=== PATIENT | male | born 1965 | race Caucasian/White ===

== ENCOUNTER 2018-02-10 12:51 | Outpatient (CLI) | payer MEDICARE | END 2018-02-10 12:52 | disposition home or self-care (01) | LOC: DTY/OP 12:51 | PROVIDERS: ATTEND Surgery | DX: E11.9 Type 2 diabetes mellitus without complications (principal); I10 Essential (primary) hypertension | CPT/HCPCS: 97802 ==

== ENCOUNTER 2018-08-18 00:11 | Outpatient (CLI) | payer MEDICARE ==
[2018-08-18 12:29] LABS: #Basophils 0.1 thou/uL (0.0-0.2); #Eosinphils 0.2 thou/uL (0.0-0.7); #Lymphocytes 4.2 thou/uL (1.20-3.40); #Monocytes 0.8 thou/uL (0.11-0.59); #Neutrophils 5.5 thou/uL (1.40-6.50); %Basophils 1.2 % (0.0-1.0); %Eosinophils 1.9 % (0.0-10.0); %Lymphocytes 38.7 % (21.0-51.0); %Monocytes 7.7 % (0.0-10.0); %Neutrophils 50.5 % (42.0-75.0); Mean Corpuscular HGB CONC 34.2 g/dL (32.0-36.0); Mean Corpuscular Hemoglobin 33.3 pg (27.0-31.0); Mean Corpuscular Volume 97.2 fL (78.0-98.0); Mean Platelet Volume 8.4 fL (7.4-10.4); Platelet Count 182 thou/uL (130-400); RBC Distribution Width 12.9 % (11.5-14.5); White Blood Cell (WBC) Count 10.9 thou/uL (4.8-10.8)
[2018-08-18 12:54] LABS: ALT (SGPT) 33 U/L (8-55); AST (SGOT) 34 U/L (5-34); Albumin 4.3 g/dL (3.5-5.0); Alkaline Phosphatase 91 U/L (40-150); Anion Gap 15 mmol/L (10-20); BUN (Urea Nitrogen) 30 mg/dL (8.4-25.7); Bilirubin, Direct 0.1 mg/dL (0.1-0.3); Bilirubin, Total 0.3 mg/dL (0.2-1.2); Calc. Creatinine Clearance 0 mL/min (70-130); Calcium 10.6 mg/dL (7.8-10.44); Carbon Dioxide 23 mmol/L (22-29); Chloride 101 mmol/L (98-107); Estimated GFR-MDRD 68; Globulin 3.5 g/dL (2.4-3.5); Glucose 80 mg/dL (70-105); Potassium 4.5 mmol/L (3.5-5.1); Protein, Total 7.8 g/dL (6.0-8.3); Sodium 134 mmol/L (136-145)
== END 2018-08-18 00:12 | disposition home or self-care (01) ==
LOC: LABBT 00:11
PROVIDERS: ATTEND Surgery
DX: Z01.818 Encounter for other preprocedural examination (principal); E11.9 Type 2 diabetes mellitus without complications; I10 Essential (primary) hypertension; Z68.41 Body mass index [BMI] 40.0-44.9, adult
CPT/HCPCS: 80053; 80076; 83036; 85025; 93005; 93010

== ENCOUNTER 2018-08-18 11:00 | Inpatient (IN) | payer MEDICARE ==
[2018-08-18 11:23] VITALS: BMI 39.9
[2018-08-27] MEDS ORDERED: Heparin 5,000 UNITS/ML VIAL ONE (10:25)
[2018-08-27] MEDS ORDERED: Bupivacaine/Epinephrine 0.25% 30 ML VIAL ONE (11:24)
[2018-08-27] MEDS ORDERED: Fentanyl 250 MCG/5 ML VIAL ONE (11:25)
[2018-08-27] MEDS ORDERED: Midazolam HCl 2 mg/2 ml Vial ONE (11:31)
[2018-08-27] MEDS ORDERED: SUGAMMADEX SODIUM 200 MG/2 ML VIAL ONE (12:58)
[2018-08-27] MEDS ORDERED: hydrALAZINE 20 MG/ML VIAL SLOW IVP PRN (13:12)
[2018-08-27] MEDS ORDERED: Dextrose 50% Abboject 50 ML SYRINGE SLOW IVP PRN (13:12)
[2018-08-27] MEDS ORDERED: Dextrose 5% in Water 1,000 ML IV PRN (13:12)
[2018-08-27] MEDS ORDERED: Hydrocodone-Acetamin 15 ML UDCUP PO PRN ×2 (13:12→13:46)
[2018-08-27] MEDS ORDERED: diphenhydrAMINE 50 MG/ML VIAL IVP PRN ×2 (13:12→13:40)
[2018-08-27] MEDS ORDERED: Ondansetron PF 4 MG/2 ML Vial IVP PRN ×2 (13:12→13:40)
[2018-08-27] MEDS ORDERED: HumaLOG 300 UNITS/3 ML VIAL SC PRN (13:12)
[2018-08-27] MEDS ORDERED: Promethazine HCl 25 MG/ML VIAL IM PRN ×3 (13:12→13:40)
[2018-08-27] MEDS ORDERED: Promethazine HCl 25 MG/ML VIAL SLOW IVP PRN (13:20)
[2018-08-27] MEDS ORDERED: Ondansetron HCl/PF 4 MG/2 ML Vial IVP PRN (13:20)
[2018-08-27] MEDS ORDERED: Fentanyl 100 MCG/2 ML VIAL ONE ×2 (13:23→14:06)
[2018-08-27] MEDS ORDERED: fentaNYL Citrate/PF 2,000 MCG in Sodium Chloride 0.9% 60 ML IV PRN (13:40)
[2018-08-27] MEDS ORDERED: diphenhydrAMINE 25 MG CAP PO PRN (13:40)
[2018-08-27] MEDS ORDERED: diphenhydrAMINE 50 MG/ML VIAL IM PRN (13:40)
[2018-08-27] MEDS ORDERED: Naloxone HCl 0.4 mg/ml Vial IV PRN (13:40)
[2018-08-27] MEDS ORDERED: Zolpidem Tartrate 5 MG TAB PO PRN (13:40)
[2018-08-27] MEDS ORDERED: Communication Order-Pharmacy FS SCH (13:45)
[2018-08-27] MEDS: Sodium Chloride 0.9% 1,000 ML IV SCH ×3 (15:35→23:32)
[2018-08-27] MEDS: Gabapentin 300 MG CAP PO SCH ×2 (15:35→19:40)
[2018-08-27] MEDS ORDERED: Ketorolac Tromethamine 30 MG/ML VIAL ONE (16:13)
[2018-08-27] MEDS ORDERED: Ondansetron PF 4 MG/2 ML Vial ONE (16:13)
[2018-08-27] MEDS ORDERED: PROVENTIL INHALER 6.7 G (200 INHALATIONS) ONE (16:13)
[2018-08-27] MEDS ORDERED: Rocuronium Bromide 10 MG/ML (10ML VIAL) ONE (16:13)
[2018-08-27] MEDS ORDERED: Dexamethasone 20 MG/5 ML VIAL ONE (16:13)
[2018-08-27] MEDS ORDERED: PHENYLEPHRINE-NS 100 MCG/ML 10 ML SYRINGE ONE (16:13)
[2018-08-27] MEDS ORDERED: PROPOFOL 200 MG/20 ML VIAL ONE (16:13)
[2018-08-27] MEDS ORDERED: Lidocaine 1% PF 5 ML VIAL ONE (16:13)
[2018-08-27] MEDS: Acetaminophen 1,000 MG in Premix Bag 1 BAG IVPB SCH ×2 (17:38→23:32)
[2018-08-27] MEDS: Pregabalin 75 MG CAP PO SCH (19:40)
[2018-08-27] MEDS: Potassium Chloride 10 MEQ TAB PO SCH (19:40)
[2018-08-27] MEDS ORDERED: DOLUTEGRAVIR PO SCH (21:00)
[2018-08-27] MEDS ORDERED: Montelukast Sodium 10 mg Tablet PO SCH (21:00)
[2018-08-27] MEDS ORDERED: ALPRAZolam 0.5 MG TAB PO SCH (21:00)
[2018-08-27] MEDS ORDERED: Enoxaparin Sodium 40 MG/0.4 ML SYRINGE SC SCH (21:00)
[2018-08-27] MEDS ORDERED: ABACAVIR PO SCH (21:00)
[2018-08-27] MEDS ORDERED: LAMIVUDI PO SCH (21:00)
--- NOTE | 2018-08-28 02:57 | OP ---
DATE OF PROCEDURE: 08/27/2018 PREOPERATIVE DIAGNOSES: 1. Morbid obesity with BMI of 41. 2. Diabetes mellitus, insulin dependent. 3. Hypertension. 4. Hyperlipidemia. POSTOPERATIVE DIAGNOSES: 1. Morbid obesity with BMI of 41. 2. Diabetes mellitus, insulin dependent. 3. Hypertension. 4. Hyperlipidemia. PROCEDURES: 1. Laparoscopic sleeve gastrectomy with [place] staple line reinforcements and 38-[place] bougie. 2. Esophagogastroduodenoscopy. ANESTHESIA: General. ESTIMATED BLOOD LOSS: 50 mL. COMPLICATIONS: None. SPECIMEN: Stomach. FINDINGS: Normal postoperative EGD. DESCRIPTION OF PROCEDURE: The patient was taken to the operating room and laid supine on the table. After general anesthetic was obtained, the arms and legs were double strapped to bariatric table. OG tube had been used to decompress the stomach. The abdomen was prepped and draped in a sterile fashion. Left subcostal 5 mm Optiview trocar was placed in usual fashion and high-flow pneumoperitoneum was obtained. Right subcostal 5-mm port was placed as well as 2 abdominal 12 mm ports. Some intraabdominal adhesions from prior hernia repair had to be taken down sharply, carefully without injury to allow for port placement. The patient was placed in reverse Trendelenburg position and 5 mm incision was made at the xiphoid and Rico was used to raise the liver off the GE junction. Short gastrics were taken down from mid body of stomach to the left marcello of diaphragm. The posterior fundus and angle of His were completely dissected. Short gastrics were taken down to a distance of 5 cm proximal to the pylorus. OG tube was removed and 38 bougie was brought in and its tip left in the antrum of the stomach. Multiple loads of the [place] stapling device was used to perform the sleeve. The first was fired up at a distance of 5 cm proximal to the pylorus, angled up towards the incisura. Multiple loads were then fired up along the bougie. Stomach was completely transected at the angle of His. Stomach was removed from the upper abdominal incision. This fascial defect was closed using GraNee needle and 0 Vicryl tie. All port sites were infiltrated using local anesthesia. EGD scope was passed through esophagus and stomach to the level of duodenum without obstruction. There was no air leakage or bleeding through the staple line. No evidence of stricture at the incisura or at the GE junction. EGD scope was used to decompress the stomach. It was pulled and removed. No bleeding in the abdomen along the staple line. All port sites were infiltrated using local anesthetic. The Rico removed under direct visualization without bleeding. Pneumoperitoneum was let down. The Vicryl was used to close the fascial defects. All incisions were irrigated and closed using 4-0 Monocryl and Dermabond. The patient was sent to Recovery in stable condition. All instrument counts, needle counts, and lap counts were correct. Job ID: [id number]
[2018-08-28 04:58] LABS: #Lymphocytes 2.4 thou/uL (1.20-3.40); #Monocytes 0.7 thou/uL (0.11-0.59); #Neutrophils 8.8 thou/uL (1.40-6.50); %Basophils 0.3 % (0.0-1.0); %Eosinophils 0.1 % (0.0-10.0); %Lymphocytes 20.3 % (21.0-51.0); %Monocytes 5.8 % (0.0-10.0); %Neutrophils 73.4 % (42.0-75.0); Hemoglobin 14.5 g/dL (14.0-18.0); Mean Corpuscular HGB CONC 33.9 g/dL (32.0-36.0); Mean Corpuscular Hemoglobin 33.5 pg (27.0-31.0); Mean Corpuscular Volume 98.8 fL (78.0-98.0); Mean Platelet Volume 8.3 fL (7.4-10.4); Platelet Count 150 thou/uL (130-400); RBC Distribution Width 12.8 % (11.5-14.5); Red Blood Cell (RBC) Count 4.32 mill/uL (4.70-6.10)
[2018-08-28 05:14] LABS: Anion Gap 11 mmol/L (10-20); BUN (Urea Nitrogen) 23 mg/dL (8.4-25.7); Calc. Creatinine Clearance 130 mL/min (70-130); Calcium 8.9 mg/dL (7.8-10.44); Carbon Dioxide 25 mmol/L (22-29); Chloride 106 mmol/L (98-107); Estimated GFR-MDRD 78; Glucose 95 mg/dL (70-105); Potassium 4.6 mmol/L (3.5-5.1); Sodium 137 mmol/L (136-145)
[2018-08-28] MEDS: Acetaminophen 1,000 MG in Premix Bag 1 BAG IVPB SCH ×2 (05:30→11:09)
[2018-08-28] MEDS: Pregabalin 75 MG CAP PO SCH (08:32)
[2018-08-28] MEDS: Gabapentin 300 MG CAP PO SCH (08:32)
[2018-08-28] MEDS: Potassium Chloride 10 MEQ TAB PO SCH (08:34)
[2018-08-28] MEDS ORDERED: DULoxetine 60 MG CAP PO SCH (09:00)
[2018-08-28] MEDS ORDERED: Lisinopril/Hydrochlorothiazide 10 mg/12.5 mg Tablet PO SCH (09:00)
[2018-08-28] MEDS ORDERED: Pantoprazole 40 MG VIAL IVP SCH (09:00)
[2018-08-28] MEDS ORDERED: Aripiprazole 10 MG TAB PO SCH (09:00)
[2018-08-28 11:41] VITALS: BP 113/70; TEMP 97.7
[2018-08-28] MEDS ORDERED: Hydrocodone-Acetamin 15 ML UDCUP PO PRN (16:00)
== END 2018-08-28 11:46 | disposition home or self-care (01) | DRG 621 ==
LOC: SURG A 08-27 09:29
PROVIDERS: ADMIT Surgery; ATTEND Surgery
PROC: 0DB64Z3 Excision of Stomach, Percutaneous Endoscopic Approach, Vertical (ICD-10-PCS; principal; 2018-08-27)
PROC: 0DJ08ZZ Inspection of Upper Intestinal Tract, Via Natural or Artificial Opening Endoscopic (ICD-10-PCS; 2018-08-27)
DX: E66.01 Morbid (severe) obesity due to excess calories (principal); I10 Essential (primary) hypertension; E11.9 Type 2 diabetes mellitus without complications; E78.5 Hyperlipidemia, unspecified; Z68.41 Body mass index [BMI] 40.0-44.9, adult
CPT/HCPCS: 36415; 36416; 71046; 80048; 85025; 88307; 88312; 94760; C9113; J0131; J1100; J1644; J1650; J1885; J2001; J2250; J2405; J2704; J3010; J7050; Q0163

== ENCOUNTER 2025-04-09 21:40 | Inpatient (IN) | payer MEDICARE ==
[2025-04-10 00:11] VITALS: BMI 34.3
[2025-04-10] MEDS ORDERED: Ondansetron PF 4 MG/2 ML Vial IVP PRN (00:16)
[2025-04-10] MEDS ORDERED: Glucagon 1 MG/ML KIT IM PRN (00:16)
[2025-04-10] MEDS ORDERED: Dextrose 50% Abboject 50 ML SYRINGE SLOW IVP PRN (00:16)
[2025-04-10 00:54] LABS: Actual Bicarbonate (HCO3v) 20.3 mEq/L (22-28); Base Excess -3.3 mEq/L (-2.0 to +3.0); Calcium, Ionized (venous) 1.14 mmol/L (1.16-1.32); Chloride (VBG) 114 mmol/L (98-106); Hematocrit-VBG 43 % (42.0-52.0); Hemoglobin (Hb) 14.6 g/dL (13.1-17.2); Potassium (VBG) 3.82 mmol/L (3.70-5.30); Sodium 146 mmol/L (133-146)
[2025-04-10 00:59] LABS: #Basophils 0.07 10x3/uL (0.0-0.2); #Eosinophils 0.36 10x3/uL (0.0-0.7); #Monocytes 0.80 10x3/uL (0.11-0.59); #Neutrophils 5.08 10x3/uL (1.40-6.50); %Basophils 0.9 % (0.0-1.0); %Eosinophils 4.6 % (0.0-10.0); %Lymphocytes 19.3 % (21.0-51.0); %Monocytes 10.2 % (0.0-10.0); %Neutrophils 64.9 % (42.0-75.0); Hematocrit 40.3 % (42.0-52.0); Hemoglobin 13.1 g/dL (14.0-18.0); Mean Corpuscular Hemoglobin 34.8 pg (27.0-31.0); Mean Corpuscular Volume 107.2 fL (78.0-98.0); Platelet Count 198 10x3/uL (130-400); Red Blood Cell (RBC) Count 3.76 mill/uL (4.70-6.10); White Blood Cell (WBC) Count 7.83 10x3/uL (4.8-10.8)
[2025-04-10 01:14] LABS: ALT (SGPT) 41 U/L (Less than 45); AST (SGOT) 53 U/L (11-34); Albumin 3.6 g/dL (3.1-4.5); Alkaline Phosphatase 60 U/L (40-110); Anion Gap 15 mmol/L (10-20); BUN (Urea Nitrogen) 25 mg/dL (8.4-25.7); Bilirubin, Total 0.7 mg/dL (0.3-1.2); Calc. Creatinine Clearance 51 mL/min (70-130); Calcium 9.4 mg/dL (7.8-10.44); Carbon Dioxide 17 mmol/L (23-31); Chloride 116 mmol/L (98-107); Globulin 3.6 g/dL (2.4-3.5); Glucose 84 mg/dL (80-115); Potassium 3.8 mmol/L (3.5-5.1); Sodium 144 mmol/L (136-145)
[2025-04-10] MEDS ORDERED: hydrALAZINE 20 MG/ML VIAL SLOW IVP PRN (02:31)
[2025-04-10] MEDS: Sodium Bicarb 50 MEQ/50 ML Abboject 8.4% SYRINGE IVP SCH (02:38)
[2025-04-10 05:15] LABS: Cardiac Risk 6.7 (Less than 4.5); Cholesterol 181.0 mg/dl (< 200 Desired); HDL Cholesterol 27.0 mg/dL (>60 Neg Risk); LDL Cholesterol, Calculated 112.0 mg/dL; Triglycerides 208.0 mg/dL (Less than 150)
[2025-04-10] MEDS ORDERED: Non-Formulary Item 1 EACH (Esomeprazole Magnesium [Nexium 24hr] 20 MG Tablet.Dr) PO SCH (09:00)
[2025-04-10 10:21] LABS: Lithium 0.857 mmol/L (1.0-1.2)
[2025-04-10] MEDS: FLU (Fluarix Triv) 25-26 (6MOS UP)/PF 45 MCG/0.5 ML Syringe IM ONE (10:34)
[2025-04-10] MEDS: Losartan 25 MG TAB PO SCH (10:56)
[2025-04-10] MEDS: Aspirin 81 mg Enteric Coated Tablet PO SCH (10:56)
[2025-04-10] MEDS: Pantoprazole 40 MG DR.TAB PO SCH (10:56)
[2025-04-10] MEDS: NIFEdipine XL 60 MG ER.TAB PO SCH (10:57)
[2025-04-11 04:53] LABS: #Basophils 0.05 10x3/uL (0.0-0.2); #Eosinophils 0.28 10x3/uL (0.0-0.7); #Monocytes 0.64 10x3/uL (0.11-0.59); #Neutrophils 4.54 10x3/uL (1.40-6.50); %Basophils 0.7 % (0.0-1.0); %Eosinophils 4.0 % (0.0-10.0); %Lymphocytes 20.9 % (21.0-51.0); %Monocytes 9.2 % (0.0-10.0); %Neutrophils 65.1 % (42.0-75.0); Hematocrit 34.9 % (42.0-52.0); Hemoglobin 11.7 g/dL (14.0-18.0); Mean Corpuscular Hemoglobin 34.4 pg (27.0-31.0); Mean Corpuscular Volume 102.6 fL (78.0-98.0); Platelet Count 227 10x3/uL (130-400); Red Blood Cell (RBC) Count 3.40 mill/uL (4.70-6.10); White Blood Cell (WBC) Count 6.98 10x3/uL (4.8-10.8)
[2025-04-11 05:13] LABS: Anion Gap 13 mmol/L (10-20); BUN (Urea Nitrogen) 14 mg/dL (8.4-25.7); Calc. Creatinine Clearance 75 mL/min (70-130); Calcium 9.0 mg/dL (7.8-10.44); Carbon Dioxide 26 mmol/L (23-31); Chloride 109 mmol/L (98-107); Glucose 106 mg/dL (80-115); Potassium 2.9 mmol/L (3.5-5.1); Sodium 145 mmol/L (136-145)
[2025-04-11 08:46] LABS: Magnesium 1.7 mg/dL (1.6-2.6)
[2025-04-11] MEDS ORDERED: Dolutegravir Sodium/Lamivudine [Dovato 50-300 Mg Tablet] PO SCH (09:00)
[2025-04-11] MEDS: Magnesium 2 GM/50 ML(in water) 2 GM in Premix 1 BAG IVPB SCH (10:00)
[2025-04-11] MEDS: NIFEdipine XL 60 MG ER.TAB PO SCH (10:00)
[2025-04-11] MEDS: Potassium Bicarbonate/Cit Ac 20 MEQ TAB PO SCH (11:40)
[2025-04-11] MEDS: Methocarbamol 500 MG TAB PO SCH (11:40)
[2025-04-12 06:39] LABS: #Basophils 0.07 10x3/uL (0.0-0.2); #Eosinophils 0.30 10x3/uL (0.0-0.7); #Monocytes 0.66 10x3/uL (0.11-0.59); #Neutrophils 3.68 10x3/uL (1.40-6.50); %Basophils 1.0 % (0.0-1.0); %Eosinophils 4.5 % (0.0-10.0); %Lymphocytes 29.5 % (21.0-51.0); %Monocytes 9.8 % (0.0-10.0); %Neutrophils 54.9 % (42.0-75.0); Hematocrit 37.5 % (42.0-52.0); Hemoglobin 12.9 g/dL (14.0-18.0); Mean Corpuscular Hemoglobin 34.2 pg (27.0-31.0); Mean Corpuscular Volume 99.5 fL (78.0-98.0); Platelet Count 263 10x3/uL (130-400); Red Blood Cell (RBC) Count 3.77 mill/uL (4.70-6.10); White Blood Cell (WBC) Count 6.71 10x3/uL (4.8-10.8)
[2025-04-12 06:51] LABS: Anion Gap 13 mmol/L (10-20); BUN (Urea Nitrogen) 9 mg/dL (8.4-25.7); Calc. Creatinine Clearance 87 mL/min (70-130); Calcium 8.9 mg/dL (7.8-10.44); Carbon Dioxide 25 mmol/L (23-31); Chloride 108 mmol/L (98-107); Glucose 89 mg/dL (80-115); Potassium 3.1 mmol/L (3.5-5.1); Sodium 143 mmol/L (136-145)
[2025-04-12 13:37] LABS: %CD4 Pos. Lymph 36.6 % (30.8-58.5); Absolute CD4 512 /uL (359-1519); Lymphocytes/Gated Cell Count 1.4 x10E3/uL (0.7-3.1); Total Lymphocyte 21 % (Not Estab.); WBC Total Count 6.8 x10E3/uL (3.4-10.8)
[2025-04-12] MEDS: Acetaminophen 325 MG TAB PO PRN (23:45)
[2025-04-13 06:05] LABS: #Basophils 0.06 10x3/uL (0.0-0.2); #Eosinophils 0.30 10x3/uL (0.0-0.7); #Monocytes 0.74 10x3/uL (0.11-0.59); #Neutrophils 4.21 10x3/uL (1.40-6.50); %Basophils 0.8 % (0.0-1.0); %Eosinophils 4.0 % (0.0-10.0); %Lymphocytes 29.7 % (21.0-51.0); %Monocytes 9.8 % (0.0-10.0); %Neutrophils 55.4 % (42.0-75.0); Hematocrit 40.2 % (42.0-52.0); Hemoglobin 14.7 g/dL (14.0-18.0); Mean Corpuscular Hemoglobin 36.5 pg (27.0-31.0); Mean Corpuscular Volume 99.8 fL (78.0-98.0); Platelet Count 292 10x3/uL (130-400); Red Blood Cell (RBC) Count 4.03 mill/uL (4.70-6.10); White Blood Cell (WBC) Count 7.58 10x3/uL (4.8-10.8)
[2025-04-13 06:21] LABS: Anion Gap 16 mmol/L (10-20); BUN (Urea Nitrogen) 11 mg/dL (8.4-25.7); Calc. Creatinine Clearance 82 mL/min (70-130); Calcium 9.1 mg/dL (7.8-10.44); Carbon Dioxide 23 mmol/L (23-31); Chloride 105 mmol/L (98-107); Glucose 112 mg/dL (80-115); Potassium 2.8 mmol/L (3.5-5.1); Sodium 141 mmol/L (136-145)
[2025-04-13] MEDS: Potassium Chloride 20 MEQ in Premix 1 BAG IVPB SCH (13:50)
[2025-04-14 05:29] LABS: #Basophils 0.07 10x3/uL (0.0-0.2); #Eosinophils 0.31 10x3/uL (0.0-0.7); #Monocytes 0.71 10x3/uL (0.11-0.59); #Neutrophils 3.64 10x3/uL (1.40-6.50); %Basophils 1.0 % (0.0-1.0); %Eosinophils 4.6 % (0.0-10.0); %Lymphocytes 29.0 % (21.0-51.0); %Monocytes 10.6 % (0.0-10.0); %Neutrophils 54.4 % (42.0-75.0); Hematocrit 39.2 % (42.0-52.0); Hemoglobin 13.4 g/dL (14.0-18.0); Mean Corpuscular Hemoglobin 34.2 pg (27.0-31.0); Mean Corpuscular Volume 100.0 fL (78.0-98.0); Platelet Count 282 10x3/uL (130-400); Red Blood Cell (RBC) Count 3.92 mill/uL (4.70-6.10); White Blood Cell (WBC) Count 6.70 10x3/uL (4.8-10.8)
[2025-04-14 05:54] LABS: Anion Gap 10 mmol/L (10-20); BUN (Urea Nitrogen) 13 mg/dL (8.4-25.7); Calc. Creatinine Clearance 85 mL/min (70-130); Calcium 8.9 mg/dL (7.8-10.44); Carbon Dioxide 23 mmol/L (23-31); Chloride 108 mmol/L (98-107); Glucose 92 mg/dL (80-115); Potassium 3.3 mmol/L (3.5-5.1); Sodium 138 mmol/L (136-145)
[2025-04-14] MEDS: Thiamine 100 MG TAB PO SCH (09:55)
[2025-04-14 16:36] VITALS: BP 116/82; TEMP 98.3
== END 2025-04-14 16:30 | DRG 682 ==
LOC: EEVIPCON 21:40 → 2NO 21:40 → INTOOBSV 21:40 → OBSVTOIN 04-10 11:44 → T4-A 04-11 15:57
PROVIDERS: ADMIT Internal Medicine; ATTEND Internal Medicine
PROC: 0T9B70Z Drainage of Bladder with Drainage Device, Via Natural or Artificial Opening (ICD-10-PCS; principal; 2025-04-10)
DX: N17.9 Acute kidney failure, unspecified (principal); G93.41 Metabolic encephalopathy; I50.22 Chronic systolic (congestive) heart failure; I10 Essential (primary) hypertension; Z21 Asymptomatic human immunodeficiency virus [HIV] infection status; E11.9 Type 2 diabetes mellitus without complications; J44.9 Chronic obstructive pulmonary disease, unspecified; I50.9 Heart failure, unspecified; G47.33 Obstructive sleep apnea (adult) (pediatric); E87.6 Hypokalemia; E83.42 Hypomagnesemia; F32.A Depression, unspecified; F20.9 Schizophrenia, unspecified; N40.1 Benign prostatic hyperplasia with lower urinary tract symptoms; R33.8 Other retention of urine
CPT/HCPCS: 36415; 36416; 70360; 71045; 80048; 80053; 80061; 80178; 82140; 82805; 83735; 85025; 86361; 96374; G0378; J3411; J3475; J3480; J7120